=== PATIENT | male | born 1970 | race Caucasian/White ===

== ENCOUNTER → 2019-10-18 12:10 | Outpatient (BNVA) | payer MEDICAID, SELFPAY | PROVIDERS: PCP Family Medicine; Visit Provider Social Worker | DX: F33.2 Major depressive disorder, recurrent severe without psychotic features (principal) | CPT/HCPCS: 90791 ==

== ENCOUNTER → 2019-10-31 15:07 | Outpatient (BNVA) | payer MEDICAID, SELFPAY | PROVIDERS: PCP Family Medicine; Visit Provider Psychiatry & Neurology Psychiatry | DX: F31.81 Bipolar II disorder (principal); F34.9 Persistent mood [affective] disorder, unspecified; F06.30 Mood disorder due to known physiological condition, unspecified; S06.9X9S Unspecified intracranial injury with loss of consciousness of unspecified duration, sequela; F06.31 Mood disorder due to known physiological condition with depressive features; M19.90 Unspecified osteoarthritis, unspecified site; M25.541 Pain in joints of right hand; M25.542 Pain in joints of left hand; M25.512 Pain in left shoulder | CPT/HCPCS: 99205 ==

== ENCOUNTER → 2019-12-06 07:45 | Outpatient (BNVA) | payer MEDICAID, SELFPAY | PROVIDERS: PCP Family Medicine; Visit Provider Psychiatry & Neurology Psychiatry | DX: F34.9 Persistent mood [affective] disorder, unspecified (principal) | CPT/HCPCS: 99214 ==

== ENCOUNTER 2020-06-17 14:35 | Emergency (ER) | payer MEDICAID, SELFPAY ==
[2020-06-17 14:37] VITALS: BP 184/109; PULSE 75; RESP 18; TEMP 36.3; O2SAT 99; BMI 31.7
--- NOTE | 2020-06-17 15:16 | XR_ITS ---
WS: [id number] Exam: XR chest 1V portable [id number] Date/Time of Exam: 06/17/2020 3:16 PM Reason For Exam: dyspnea/cough Comparison 09/13/2017. Findings: The lungs are clear and fully expanded. Costophrenic angles are sharp. No infiltrates. Bronchovascula r relief appears normal. Cardiac silhouette is unremarkable. Bony elements are intact. XR/XR chest 1V portable [id number] IMPRESSION: Unremarkable chest radiograph.
--- NOTE | 2020-06-17 15:38 | ED_ITS ---
HPI - SOB/Dyspnea General: Chief Complaint: Shortness of Breath/Dyspnea Stated Complaint: Sent from UC/sob/poss fluid around heart Time Seen by Provider: 06/17/20 15:21 History of Present Illness: HPI Narrative: 49-year-old male presents emergency room with complaints of shortness of breath. He had seen his primary care doctor and reported that he thought he had fluid buildup on his chest he was discharged from there and referred to the emergency room for evaluation has not had any chest pain. MD elicited complaint: shortness of breath and cough Pertinent past history: asthma Onset (ago): day(s) Timing: constant Severity: mild Exacerbating factors: exertion and coughing Relieving factors: rest and bronchodilators Known history of: asthma Associated symptoms: Deny abdominal pain, chest pain, fever(s), nausea, orthopnea or vomiting Review of Systems Const: Denies: fever(s), chills, body aches, change in appetite, fatigue or malaise ENMT: Denies: throat pain, ear or mastoid pain, nasal discharge or nasal congestion Card: Denies: chest pain, edema, dyspnea on exertion or orthopnea Resp: Reports: dyspnea, non-productive cough and wheezing; Denies: productive cough GI: Denies: abdominal pain, nausea, vomiting, hematemesis, coffee ground emesis, diarrhea, constipation, bloating, hematochezia or melena : Denies: flank pain, dysuria, urinary frequency or urinary urgency Skin/Breast: Denies: rash or pruritus PFSH ED PFSH: Medical History (Updated 06/17/20 @ 15:37 by Kamaljit Dennis DO) History of brain concussion Family History (Updated 03/25/20 @ 14:58 by GREG Juarez) Mother Stroke Cancer Social History (Updated 06/17/20 @ 13:57 by LIZETTE Daigle) Smoking and tobacco status: current every day smoker smokeless tobacco Smokeless tobacco user: snuff Smokeless tobacco details: 1 can every 2 days Quit status (tobacco): considering quitting Second hand smoke exposure: No Alcohol intake: never Current gender identity: Male Physical Exam Const: COMMON NORMALS: no acute distress GENERAL APPEARANCE: cooperative and comfortable ORIENTATION/CONSCIOUSNESS: Yes awake, Yes oriented to person, Yes oriented to place and Yes oriented to time HENMT: COMMON NORMALS: normocephalic, atraumatic and hearing grossly normal bilaterally HEAD & SCALP: normocephalic and atraumatic Neck/C-Spine: COMMON NORMALS: no JVD Resp: COMMON NORMALS: normal respiratory effort, No retractions, No use of accessory muscles and clear to auscultation bilaterally AUSCULTATION: clear to auscultation bilaterally Cardio: COMMON NORMALS: no JVD, regular rate, regular rhythm and No murmurs present (Cardio) RATE: regular rate RHYTHM: regular rhythm GI: COMMON NORMALS: Soft to palpation and No hepatosplenomegaly present AUSCULTATION: Yes normoactive bowel sounds PALPATION: Yes Soft to palpation, No Tenderness to palpation present (GI), No Guarding due to palpation present (GI) and Yes No hepatosplenomegaly present Extremity: COMMON NORMALS: normal to inspection, capillary refill normal, no clubbing, cyanosis or edema, no calf tenderness and no pedal edema Neuro: SENSORIUM/ORIENTATION: Yes oriented to person, Yes oriented to place and Yes oriented to time Skin: COMMON NORMALS: no rashes or lesions noted GENERAL SKIN EXAM: no rashes or lesions noted Course Vital Signs: Vital signs: Vital Signs Temperature 97.4 F L 06/17/20 14:37 Pulse Rate 77 06/17/20 16:00 Respiratory Rate 14 06/17/20 16:00 Blood Pressure 160/94 06/17/20 16:00 Pulse Oximetry 98 06/17/20 16:00 MDM - SOB/Dyspnea MDM Narrative: Medical decision making narrative: Due to findings the patient suspect he has Covid we will discharge him home recommend self quarantine until results are available Lab Data: Labs: Lab Results 06/17/20 Range/Units 15:40 Nasal/Oral COVID-1 9 PCR Detected H Discharge Plan Discharge Patient Disposition: Home Clinical Impression: Viral URI, Suspected 2019-nCoV infection Condition: Stable Prescriptions: No Action loratadine [Allergy Relief (loratadine)] 10 mg tablet 10 mg PO DAILY RF: 0 ibuprofen 200 mg tablet 800 mg PO DAILY PRNRF: 0 zinc 50 mg tablet 50 mg PO DAILY Qty: 30 RF: 0 duloxetine [Cymbalta] 30 mg capsule,delayed release(DR/EC) 30 mg PO DAILY Qty: 30 RF: 2 ergocalciferol (vitamin D2) [Drisdol] 1,250 mcg (50,000 unit) capsule 1,250 mcg PO DAILY Qty: 4 RF: 2 magnesium gluconate 30 mg (550 mg) tablet 30 mg PO BID Qty: 60 RF: 2 levomefolate calcium [L-Methylfolate] 15 mg tablet 15 mg PO DAILY Qty: 30 RF: 2 gabapentin [Neurontin] 300 mg capsule 600 mg PO TID Qty: 180 RF: 2 albuterol sulfate 2 mg tablet 2 mg PO Q8H RF: 0 budesonide-formoterol [Symbicort] 80-4.5 mcg/actuation HFA aerosol inhaler 2 puff inhalation BID RF: 0 Discharge Orders: Discharge ED (Routine); Ordered 06/17/20 Ordered By: Kamaljit Dennis Referrals: Nika Del Rosario MD [Primary Care Provider] - Discharge Diet: Usual diet Discharge Activity: Increase activity as tolerated Coding Level of Care Code ED [employer] for Magdalena Gabriel
[2020-06-17 16:00] VITALS: BP 160/94; PULSE 77; RESP 14; O2SAT 98
[2020-06-18 17:53] LABS: Coronavirus Test Green County DETECTED
== END 2020-06-17 16:00 | disposition home or self-care (01) ==
PROVIDERS: Emergency Provider Family Medicine; PCP Family Medicine
DX: U07.1 COVID-19 (principal); F17.220 Nicotine dependence, chewing tobacco, uncomplicated
CPT/HCPCS: 12345; 71045; 87635; 99281; 99282

== ENCOUNTER 2021-01-14 15:17 | Outpatient (CLI) | payer MEDICAID, SELFPAY ==
--- NOTE | 2021-01-14 15:39 | XR_ITS ---
WS: [id number] Exam: XR abdomen 1V* [id number] Date/Time of Exam: 01/14/2021 3:39 PM Reason For Exam: ABDOMINAL DISTENTION No sign of bowel obstruction or free air. Organ margins are unremarkable. Regional bony elements appe ar normal. XR/XR abdomen 1V* [id number] IMPRESSION: 1. No acute abdominal process.
== END 2021-01-14 15:18 | disposition home or self-care (01) ==
PROVIDERS: PCP Family Medicine; Visit Provider Family Medicine
DX: R14.0 Abdominal distension (gaseous) (principal)
CPT/HCPCS: 74018